=== PATIENT | male | born 2000 | race African-American/Black ===

== ENCOUNTER 2018-04-03 07:41 | Emergency (ER) | payer SELFPAY ==
[2018-04-03 07:52] VITALS: TEMP 97.8; BMI 29.5
--- NOTE | 2018-04-03 08:03 | PDOC ---
History of Present Illness - General Chief Complaint: Seizure Stated Complaint: SEIZURE Time Seen by Provider: 04/03/18 07:47 - History of Present Illness Initial Comments: 04/03/18 08:06 The patient is a 17 year old male with no significant PMH who presents for evaluation of seizure. The patient does not have a history of seizures. The patient is accompanied by family who assist in providing the history. They note that they found the patient "foaming at the mouth" with a tense body earlier this morning that lasted a few minutes prompting their presentation to the ED for evaluation. The patient reports that he does not remember the event , but does note biting his tongue as well as urine incontinence. He states that he has been healthy prior to the event denying any fevers, chills, SOB, cough, chest pain, nausea, vomiting, abdominal pain, or changes with urination or bowel movements. Past History - Past Medical History Allergies/Adverse Reactions: Allergies Allergy/AdvReac Type Severity Reaction Status Date / Time No Known Allergies Allergy Verified 04/03/18 07:44 Home Medications: Ambulatory Orders NK [No Known Home Medication] 04/03/18 COPD: No - Suicide/Smoking/Psychosocial Hx Smoking History: Never smoked Have you smoked in the past 12 months: No Information on smoking cessation initiated: No Hx Alcohol Use: No Drug/Substance Use Hx: Yes Substance Use Type: Marijuana Review of Systems - Review of Systems Comments:: 04/03/18 08:16 Constitutional: No fevers, chills, fatigue, malaise HEENT: No Rhinorrhea, nasal congestion, visual changes Cardiovascular: No chest pain, syncope, palpitations, lightheadedness Respiratory: No Cough, SOB, Hemoptysis, Gastrointestinal: No Abdominal pain, Nausea, Vomiting, Constipation, Diarrhea, Melena Genitourinary: No Dysuria, Frequency, Urgency, Hesitancy, Hematuria, Flank pain Musculoskeletal: No Myalgia, arthralgia Skin: No rashes, itching, bruising, pallor Neurologic: Seizure. Urinary Incontinence, Tongue Biting. No Headache, Dizziness, Numbness, Weakness, or Tingling Psychiatric: No Hallucinations. No SI or HI *Physical Exam - Vital Signs Last Vital Signs Temp Pulse Resp BP Pulse Ox 97.8 F 79 20 112/58 99 04/03/18 07:44 04/03/18 07:44 04/03/18 07:44 04/03/18 07:44 04/03/18 07:44 - Physical Exam Comments: 04/03/18 08:17 General Appearance: Nourished. No Apparent Distress HEENT: EOMI, WESLEY. No Pharyngeal Erythema, Tonsillar Exudate, Tonsillar Erythema Neck: No Cervical Lymphadenopathy Respiratory/Chest: Lungs Clear, Normal Breath Sounds. No Crackles, Rales, Rhonchi, Wheezing Cardiovascular: Regular Rhythm, Regular Rate. No Murmur, Gallops, Rubs Gastrointestinal/Abdominal: Normal Bowel Sounds, Soft. No Guarding, Rebound, Tenderness Musculoskeletal: No CVA Tenderness Extremity: Normal Capillary Refill Integumentary: Normal Color, Dry, Warm Neurologic: animal care technician II-XII NML intact, Fully Oriented, Alert, Normal Mood/Affect, Normal Response, Motor Strength 5/5. Normal Finger to Nose and Heel to Chin Heart Score/ECG Review #1 ECG reviewed & interpreted by me at: 10:01 General ECG Interpretation: Sinus Rhythm, Normal Rate, Normal Intervals, No acute ischemic changes Compared to previous ECG there are: Previous ECG unavail ED Treatment Course - LABORATORY CBC & Chemistry Diagram: 04/03/18 08:00 04/03/18 08:00 - RADIOLOGY Radiology Studies Ordered: Category Date Time Status HEAD CT WITHOUT CONTRAST [CT] Stat CT Scan 04/03/18 07:50 Ordered CHEST X-RAY PORTABLE* [RAD] Stat Radiology 04/03/18 07:50 Ordered Medical Decision Making - Medical Decision Making 04/03/18 08:18 The patient is a 17 year old male with no significant PMH who presents for evaluation of seizure. Differential includes but is not limited to: Primary seizure disorder, Intracranial process, Infectious, Toxic or Metabolic Derangement. Given the patient's history of first time seizure, we will obtain a cbc, cmp, lactate, chest plain film, ua, urine tox, ekg, head ct to evaluate further for possible etiologies. We will continue to monitor and reassess in the meantime. 04/03/18 09:54 CBC, cmp, are unremarkable. Lactate is elevated to 2.6. Head CT demonstrates a hypodense mass in the left parietal lobe as read by our radiologist. We do not have neurosurgery freight traffic consultant at this time and the patient will require transfer for neurosurgical evaluation. We discussed the case with Dr. Mosley with Neurosurgery at [facility] who will evaluate the patient and Dr. Ayala with [facility] who has accepted the patient for transfer. The patient is currently clinically stable and asymptomatic at this time. We have informed the patient and his family of the results as well as need for transfer and they are agreeable with the plan. We will continue to monitor and reassess while here in the ED. *DC/Admit/Observation/Transfer Diagnosis at time of Disposition: Seizure - Discharge Dispostion Disposition: TRANSFER ACUTE CARE/OTHER HOSP Condition at time of disposition: Stable Admit: No - Referrals - Patient Instructions - Post Discharge Activity - Transfer to Acute Care Facility Receiving Facility: [facility] Accepting Physician:: Dr. Ayala
[2018-04-03 08:29] LABS: BASO % 0.5 % (0-2.0); EOS % 1.2 % (0-4.5); HEMATOCRIT 41.5 % (35.4-49); HEMOGLOBIN 14.1 GM/dL (11.7-16.9); LYMPH % 31.6 % (8-40); MCH 31.1 pg (25.7-33.7); MEAN CELL VOLUME 91.4 fl (80-96); MEAN PLT VOLUME 9.5 fl (7.5-11.1); MONO % 7.1 % (3.8-10.2); NEUT % 59.6 % (42.8-82.8); PLATELET COUNT 165 K/MM3 (134-434); RBC 4.54 M/mm3 (4.00-5.60); RDW 13.5 % (11.9-15.9); WHITE BLOOD COUNT 3.5 K/mm3 (4.0-10.0)
[2018-04-03 09:02] LABS: ALBUMIN 3.8 g/dl (3.4-5.0); ALK PHOS 59 U/L (45-117); ANION GAP 6 (8-16); BILIRUBIN,TOTAL 0.8 mg/dL (0.2-1.0); BLOOD UREA NITROGEN 13 mg/dL (7-18); CALCIUM 8.6 mg/dL (8.5-10.1); CHLORIDE 106 mmol/L (98-107); CO2 27 mmol/L (21-32); CREATININE 0.9 mg/dL (0.7-1.3); GLUCOSE,RANDOM 78 mg/dL (74-106); POTASSIUM 4.1 mmol/L (3.5-5.1); SGOT/AST 10 U/L (15-37); SGPT/ALT 16 U/L (12-78); SODIUM 139 mmol/L (136-145); TOT PROT 6.9 g/dl (6.4-8.2)
--- NOTE | 2018-04-03 09:33 | PDOC ---
Attending Attestation - Resident Resident Name: Srinath Moreno - ED Attending Attestation I have performed the following: I have examined & evaluated the patient, The case was reviewed & discussed with the resident, I agree w/resident's findings & plan, Exceptions are as noted - Medical Decision Making 04/03/18 09:33 I, Dr. Lisa Levin, DO, attest that this document has been prepared under my direction and personally reviewed by me in its entirety. I further attest, that it accurately reflects all work, treatment, procedures and medical decision -making performed by me. 04/03/18 09:38 a/p: 17yo male with new onset seizure witness by family this AM while in bed -tongue biting, lip biting -no active bleeding -currently denies all complaints -admits to marijuana use -no recent head trauma, no recent hutson, no complaints at this time -will obtain labs, head ct, ua, uds, will monitor and reassess 04/03/18 09:39 ct shows a hyperdense mass on head ct family updated on ct results. labs reviewed pt now with small headache and shoulder pain will give iv tylenol call placed to [facility] for transfer no neurosx hospital admissions officer here today needs transfer to neurosx and neuro eval for new onset seizure and mass on head ct repeat neuro exam is nonfocal 04/03/18 09:41 resident discussed case with [facility] transfer center for transfer family and patient updated on transfer 04/03/18 09:[address] Ayala at [facility] under peds ED - Dr. Melany benito will eval the patient transfer team at the bedside <Lisa Levin - Last Filed: 04/03/18 09:58> - HPI HPI: 04/03/18 11:23 The patient is a 17 year old male with no significant PMH who presents for evaluation of seizure. The patient does not have a history of seizures. The patient is accompanied by family who assist in providing the history. They note that they found the patient "foaming at the mouth" with a tense body earlier this morning that lasted a few minutes prompting their presentation to the ED for evaluation. The patient reports that he does not remember the event , but does note biting his tongue as well as urine incontinence. He states that he has been healthy prior to the event denying any fevers, chills, SOB, cough, chest pain, nausea, vomiting, abdominal pain, or changes with urination or bowel movements. The patient is a 17 year old male, with no significant past medical history, who presents to the emergency department, s/p seizure. As per patients family, his body was tense and he was foaming at the mouth. They report this occurred for a few minutes. The patient does not recall his seizure. He reports urine incontinence and biting down on his tongue. He denies any recent fevers, chills, headache or dizziness. He denies any recent nausea, vomit, diarrhea or constipation. He denies any recent chest pain or shortness of breath. Allergies: NKA Past surgical history: None reported. Social History: Nonsmoker. Denies EtOH use and recreational drug use. - Physicial Exam PE: 04/03/18 11:23 Constitutional: Awake, alert, oriented. No acute distress. Head: Normocephalic. Atraumatic Eyes: PERRL. EOMI. Conjunctivae are not pale. ENT: Mucous membranes are moist and intact. Posterior pharynx without exudates or erythema. Uvula midline. Neck: Supple. Full ROM. No lymphadenopathy. Cardiovascular: Regular rate. Regular rhythm. S1, S2 regular. Distal pulses are 2+ and symmetric. Pulmonary/Chest: No evidence of respiratory distress. Clear to auscultation bilaterally No wheezing, rales or rhonchi. Abdominal: Soft and non-distended. There is no tenderness. No rebound, guarding or rigidity. No organomegaly. No palpable masses. Good bowel sounds. Back: No CVA tenderness. Musculoskeletal: No edema. No cyanosis. No clubbing. Full range of motion in all extremities. Nocalf tenderness. Radial/pedal pulses are intact and 2+ bilaterally Skin: Skin is warm and dry. No petechiae. No purpura. Neurological: Alert and oriented to person, place, and time. Cranial nerves II -XII are grossly intact. Normal speech. Strength is grossly symmetric. No sensory deficits. Psychiatric: Good eye contact. Normal interaction, affect and behavior. <Zenon Villafuerte - Last Filed: 04/03/18 11:23> Heart Score/ECG Review - ECG Intrepretation Comment:: 04/03/18 09:57 sinus rama at 56, nl axis, nl interval, no acute st/t wave findings <Lisa Levin - Last Filed: 04/03/18 09:58> Attestations - Attestations 04/03/18 11:23 Documentation prepared by Zenon Villafuerte, acting as certified medical asst for Lisa Levin DO. <Zenon Villafuerte - Last Filed: 04/03/18 11:23>
[2018-04-03] MEDS ORDERED: ACETAMINOPHEN 1000 MG/100 ML VIAL (NON FORMULARY) IVPB ONE (09:36)
[2018-04-03] MEDS ORDERED: ACETAMINOPHEN INJECTION 100 ML IVPB ONE (09:38)
[2018-04-03 09:43] LABS: URINE APPEARANCE CLEAR; URINE BILIRUBIN NEGATIVE (<2.0 mg/dL); URINE COLOR LTYELLOW; URINE GLUCOSE (UA) NEGATIVE (NEGATIVE); URINE KETONE NEGATIVE (NEGATIVE); URINE LEUK ESTERASE NEGATIVE (NEGATIVE); URINE NITRITE NEGATIVE (NEGATIVE); URINE PROTEIN NEGATIVE (NEGATIVE); URINE UROBILINOGEN NEGATIVE mg/dL (0.2-1.0)
[2018-04-03 09:46] VITALS: BP 130/76; PULSE 52
[2018-04-03 09:56] LABS: COCAINE, UR NEGATIVE ng/ml (CUTOFF=300); METHADONE, UR NEGATIVE ng/ml (CUTOFF=300); OPIATES, URI NEGATIVE ng/ml (CUTOFF=300); PHENCYCLIDINE,URINE NEGATIVE ng/ml (CUTOFF=25); URINE AMPHETAMINES NEGATIVE ng/ml (CUTOFF=500); URINE BARBITURATES NEGATIVE ng/ml (CUTOFF=200); URINE BENZODIAZEPINES NEGATIVE ng/ml (CUTOFF=200)
[2018-04-03 10:08] LABS: EPI CELLS RARE /HPF (FEW); URINE MUCUS RARE
--- NOTE | 2018-04-03 14:29 | EKG ---
Test Reason : Blood Pressure : / mmHG Vent. Rate : 056 BPM Atrial Rate : 056 BPM P-R Int : 160 ms QRS Dur : 098 ms QT Int : 380 ms P-R-T Axes : 065 032 028 degrees QTc Int : 366 ms SINUS BRADYCARDIA WITH SINUS ARRHYTHMIA RSR' OR QR PATTERN IN V1 SUGGESTS RIGHT VENTRICULAR CONDUCTION DELAY BORDERLINE ECG NO PREVIOUS ECGS AVAILABLE Confirmed by MD Anthony, Srinath ([id number]) on 04/03/2018 2:29:22 PM Referred By: Confirmed By:Srinath Cruz MD
== END 2018-04-03 10:05 | disposition short-term general hospital (02) ==
LOC: EDBD 07:41 → JER 07:41
PROC: 3E033NZ Introduction of Analgesics, Hypnotics, Sedatives into Peripheral Vein, Percutaneous Approach (ICD-10-PCS; principal; 2018-04-03)
DX: R56.9 Unspecified convulsions (principal)
CPT/HCPCS: 36415; 70450-TC; 71045-TC-FY; 80053; 80307; 81003; 81015; 83605; 85025; 93005; 93010; 99284-25; J0131

== ENCOUNTER 2019-03-31 22:45 | Emergency (ER) | payer SELFPAY ==
--- NOTE | 2019-03-31 23:00 | PDOC ---
History of Present Illness - General Stated Complaint: SEIZURE - History of Present Illness Initial Comments: The pt is a 18M w/ a history of seizure d/o presents for evaluation s/p seizure tonight. Pt reports taking his Keppra at 2000 then going to bed. His brother, who was in the room, witnessed the onset of his seizure at approximately 2029- 2044 which lasted for 3 minutes. The pt denies urinary or bowel incontinence. Per the brother the pt was placed in the left lateral decubitus position immediately at the onset. The pt was lethargic and initially complained to R shoulder pain s/p seizure, both of which have since resolved. Currently the pt is asymptomatic and denies any complaints. Denies recent illness, fevers, RECINOS, vision changes, chest pain, SOB, N/V/C/D, dysuria, or change in strength/sensation. Reports being compliant with his medications. Neurologist: Dr. Deshawn Diehl, [place] PMH: Seizure d/o PSH: Denies Meds: Keppra 500mg PO BID SH: +THC, last 1000 Allergies: Denies 03/31/19 23:01 Past History - Past Medical History Allergies/Adverse Reactions: Allergies Allergy/AdvReac Type Severity Reaction Status Date / Time No Known Allergies Allergy Verified 04/03/18 07:44 Home Medications: Ambulatory Orders NK [No Known Home Medication] 04/03/18 COPD: No - Suicide/Smoking/Psychosocial Hx Smoking History: Never smoked Have you smoked in the past 12 months: No Hx Alcohol Use: No Drug/Substance Use Hx: Yes Substance Use Type: Marijuana Review of Systems - Review of Systems Able to Perform ROS?: Yes Comments:: GENERAL/CONSTITUTIONAL: No fever or chills. No weakness HEAD, EYES, EARS, NOSE AND THROAT: No change in vision. No ear pain or discharge. No sore throat CARDIOVASCULAR: No chest pain or shortness of breath RESPIRATORY: Denies cough, hemoptysis GASTROINTESTINAL: No nausea, vomiting, diarrhea or constipation GENITOURINARY: No dysuria, frequency, or change in urination MUSCULOSKELETAL: No joint or muscle swelling or pain. No neck or back pain SKIN: No rash NEUROLOGIC: No headache, vertigo, or change in strength/sensation. ENDOCRINE: No increased thirst. No abnormal weight change HEMATOLOGIC/LYMPHATIC: No anemia, easy bleeding, or history of blood clots ALLERGIC/IMMUNOLOGIC: No hives or skin allergy 03/31/19 23:00 Is the patient limited Uzbek proficient: No *Physical Exam - Physical Exam Comments: GENERAL: Awake, alert, and oriented to person/place/time, in no acute distress HEAD: No signs of trauma, normocephalic, atraumatic EYES: PERRLA, EOMI, sclera anicteric, conjunctiva clear ENT: Hearing grossly normal, nares patent, oropharynx clear without exudates. No uvular deviation. Moist mucosa LUNGS: No distress, speaks full sentences, clear to auscultation bilaterally HEART: Regular rate and rhythm, normal S1 and S2, no murmurs appreciated, peripheral pulses normal and equal bilaterally ABDOMEN: Soft, nontender, normoactive bowel sounds. No guarding, no rebound EXTREMITIES: Normal inspection, Normal range of motion, no edema. No clubbing or cyanosis NEUROLOGICAL: Cranial nerves II through XII grossly intact. Normal speech, no focal sensorimotor deficits SKIN: Warm, Dry 03/31/19 23:01 ED Treatment Course - LABORATORY CBC & Chemistry Diagram: 03/31/19 23:15 03/31/19 23:15 Medical Decision Making - Medical Decision Making The pt is a 18M w/ a history of seizure ED Course Labs sent ECG CT Head 03/31/19 23:05
[2019-03-31 23:28] LABS: BASO % 0.7 % (0-2.0); EOS % 2.1 % (0-4.5); HEMATOCRIT 42.5 % (35.4-49); HEMOGLOBIN 14.1 GM/dL (11.7-16.9); LYMPH % 32.7 % (8-40); MCH 31.3 pg (25.7-33.7); MCHC 33.1 g/dl (32.0-35.9); MEAN CELL VOLUME 94.8 fl (80-96); MEAN PLT VOLUME 9.8 fl (7.5-11.1); MONO % 7.4 % (3.8-10.2); NEUT % 57.1 % (42.8-82.8); PLATELET COUNT 164 K/MM3 (134-434); RBC 4.49 M/mm3 (4.00-5.60); RDW 14.1 % (11.9-15.9); WHITE BLOOD COUNT 3.8 K/mm3 (4.0-10.0)
--- NOTE | 2019-03-31 23:41 | PDOC ---
Documentation entered by Kelly Desai SCRIBE, acting as scribe for Xi Jane MD. Xi Jane MD: This documentation has been prepared by the Giselle villalobos Adrianna, SCRIBE, under my direction and personally reviewed by me in its entirety. I confirm that the documentation accurately reflects all work, treatment, procedures, and medical decision making performed by me. Attending Attestation - Resident Resident Name: John Mora - ED Attending Attestation I have performed the following: I have examined & evaluated the patient, The case was reviewed & discussed with the resident, I agree w/resident's findings & plan - HPI HPI: 18 Y M, pmh of seizure disorder (compliant with meds - keppra), presenting s/p witnessed seizure at approx 845PM at home. Patient notes it was a tonic clonic seizure that lasted for 3 minutes. He endorses taking Keppra prior to falling asleep, and seized while sleeping 45 minutes after. Patients brother rolled him on his left side to avoid any choking. He endorses feeling slightly confused and lethargic following the episode, +tongue biting. no urinary/bowel incontinence. Patient additionally complained of right shoulder pain s/p seizure. While in the ED, patient is at his baseline, and notes all symptoms have resolved. He reports his last seizure was one year ago, and he follows up with neurologist at home (from [place]). admits to regular cannibis use, last used tonight. 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 Denies fever, chills, chest pain, SOB, palpitation, dizziness, weakness, N, V, D , abdominal pain, bladder and bowel problems, leg swelling, No sick contacts or travel. No new changes in medications. sleeping and eating normally, no changes to habits. family at bedside to corroborate information Allergies: None Past Medical History: Seizure disorder, cavernoma Social history: Marijuana use. Lives with family. No tobacco use. Surgical history: None reported Meds: as documented in EMR Neurologist: Dr. Deshawn Diehl , [place] 03/31/19 23:46 04/01/19 00:19 - Physicial Exam PE: Agree with the resident's HPI and PE as documented in the electronic medical record. NAD, comfortable, awake and alert, PERRL, EOMI, +rt lateral tongue lac, nl conjunctiva, anicteric; neck supple. lungs clear, RRR, abdomen soft nontender. CHEEK x4, no focal neuro deficits. No peripheral edema. normal color for ethnicity , WWP. SILT, 5/5 strength in all extrem. 03/31/19 23:46 04/01/19 00:19 - Medical Decision Making 03/31/19 23:37 hpi as documented. VS reviewed, wnl. DDX sz, syncope, infection, intracranial lesion, ICH, electrolyte/metabolic derangements. subtherapeutic medication. labs and lytes normal +marijuana use, but sober, no e/o intoxication, no AMS/confusion, no neuro deficits. Prior Head CT demonstrates a hypodense mass in the left parietal lobe previously in 03/2018, when he was first dx'd with sz at [place]' repeat head ct imaging given repeat seizure. stable, old cavernoma noted in left parietal lobe no mass effect or bleed, no new mass. shared decision making with family and pt, elects for discharge and f/u in [place], which is appropriate, as he is back to baseline, no deficits, clear speech and mentation, trigger likely from cannibis, less likely cavernoma as stable and unchanged and has had workup with neuro as outpatient. keppra level loaded 1g IV keppra, uptitrated dose neuro cs with primary attg in [place], associate of Dr Diehl, agree with plan. 04/01/19 02:05
[2019-03-31 23:57] VITALS: TEMP 97.9; BMI 22.1
--- NOTE | 2019-04-01 00:14 | PDOC ---
*Physical Exam - Vital Signs Last Vital Signs Temp Pulse Resp BP Pulse Ox 97.9 F 60 16 132/64 100 03/31/19 23:00 03/31/19 23:00 03/31/19 23:00 03/31/19 23:00 03/31/19 23:00 ED Treatment Course - LABORATORY CBC & Chemistry Diagram: 03/31/19 23:15 03/31/19 23:15 Medical Decision Making - Medical Decision Making 04/01/19 00:14 Pt signed out to me by Dr. Mora. 18M with PMH of seizures who presents after having a witnessed seizure. Pending labs and CTH as pt has a hx of cavernoma in the brain. 04/01/19 01:56 CT shows unchanged cavernoma. The patient refuses admission for MRI in the morning. Dr. Deshawn Diehl at [facility], pt's neurologist, has been paged for recommendations and f/u. 04/01/19 02:01 Dr. Blanco, associated of Dr. Diehl, requests 1000mg BID after leaving. Will send keppra level. 04/01/19 02:47 Pt took IV out. Will give PO and d/c with neuro f/u on Wednesday. *DC/Admit/Observation/Transfer Diagnosis at time of Disposition: Seizure - Discharge Dispostion Disposition: HOME Condition at time of disposition: Improved Decision to Admit order: No - Referrals - Patient Instructions Printed Discharge Instructions: DI for Seizure Disorder -- Adult Additional Instructions: You were seen after having a seizure. I spoke with your neurologist's associate who recommended that you take 1000mg twice a day of Keppra starting tomorrow morning. Please return to the ER if you develop another seizure or have worsening symptoms. Please follow up with your neurologist Wednesday. - Post Discharge Activity
[2019-04-01 00:16] LABS: ALK PHOS 57 U/L (45-117); ANION GAP 5 MMOL/L (8-16); BILIRUBIN,TOTAL 1.5 mg/dL (0.2-1); BLOOD UREA NITROGEN 8 mg/dL (7-18); CALCIUM 9.2 mg/dL (8.5-10.1); CHLORIDE 104 mmol/L (98-107); CO2 29 mmol/L (21-32); CREATININE 0.9 mg/dL (0.55-1.3); GLUCOSE,RANDOM 86 mg/dL (74-106); POTASSIUM 3.6 mmol/L (3.5-5.1); SGOT/AST 14 U/L (15-37); SGPT/ALT 21 U/L (13-61); SODIUM 138 mmol/L (136-145)
[2019-04-01] MEDS ORDERED: levETIRAcetam 500 MG/5 ML INJECTION VIAL IVPB ONE ×2 (01:55→02:39)
[2019-04-01] MEDS ORDERED: levETIRAcetam 500 MG TABLET (FP) PO ONE ×2 (02:45→02:46)
[2019-04-01 03:57] VITALS: BP 127/71; PULSE 62
--- NOTE | 2019-04-01 09:39 | EKG ---
Test Reason : Blood Pressure : / mmHG Vent. Rate : 055 BPM Atrial Rate : 055 BPM P-R Int : 154 ms QRS Dur : 106 ms QT Int : 404 ms P-R-T Axes : 054 065 052 degrees QTc Int : 386 ms SINUS BRADYCARDIA RSR' OR QR PATTERN IN V1 SUGGESTS RIGHT VENTRICULAR CONDUCTION DELAY BORDERLINE ECG WHEN COMPARED WITH ECG OF 03-APR-2018 08:29, NO SIGNIFICANT CHANGE WAS FOUND Confirmed by ANETA ALEJANDRE, IRWIN ([id number]) on 04/01/2019 9:38:38 AM Referred By: Confirmed By:IRWIN CORNELL MD
== END 2019-04-01 03:47 | disposition home or self-care (01) ==
LOC: JER 22:45
DX: G40.909 Epilepsy, unspecified, not intractable, without status epilepticus (principal)
CPT/HCPCS: 36415; 70450-TC; 80053; 80177; 82550; 85025; 93005; 93010; 99283-25